=== PATIENT | male | born 1955 | race Caucasian/White ===

== ENCOUNTER 2020-02-20 19:12 | Emergency (ER) | payer MEDICARE ==
[~2020-02-20] VITALS: Ht 175.3 cm; Wt 86.4 kg
[2020-02-20 19:16] VITALS: BP 174/111; TEMP 97.9
[2020-02-20] MEDS ORDERED: PRILOSEC 20MG20 MG PO (20:01)
[2020-02-20] MEDS ORDERED: MULTI VITAMINS1 TAB PO (20:02)
[2020-02-20] MEDS ORDERED: AMOXICILLIN 8751 TAB PO (20:49)
[2020-02-20 21:11] VITALS: PULSE 96
== END 2020-02-20 21:11 | disposition home or self-care (01) ==
LOC: COL.ER 19:12
DX: S50.871A Other superficial bite of right forearm, initial encounter (principal); S60.572A Other superficial bite of hand of left hand, initial encounter; K21.9 Gastro-esophageal reflux disease without esophagitis; Z23 Encounter for immunization; W54.0XXA Bitten by dog, initial encounter